=== PATIENT | male | born 1985 | race Caucasian/White ===

== ENCOUNTER 2018-10-22 09:08 | Emergency (ER) | payer BC ==
[2018-10-22 09:43] VITALS: BP 107/71
--- NOTE | 2018-10-22 10:04 | UC ---
Throat Pain/Nasal [place] HPI - HPI Summary HPI Summary: 32-year-old male comes to clinic today with a chief complaint of cough and sputum production. Patient's had upper respiratory tract infection symptoms for about 10 days now. His sputum is yellow. He has heard some wheezing. He is not a smoker. Coughing helps get rid of the sputum. - History of Current Complaint Chief Complaint: UCRespiratory Stated Complaint: COUGH,CHEST CONGESTION Time Seen by Provider: 10/22/18 09:52 Pain Intensity: 0 - Allergies/Home Medications Allergies/Adverse Reactions: Allergies Allergy/AdvReac Type Severity Reaction Status Date / Time No Known Allergies Allergy Verified 10/22/18 09:38 Home Medications: Home Medications Acetaminophen/Dextromethorphan [Cold & Cough Daytime 1000-30 mg/30Ml] 1 liq PO Q12HR PRN 10/22/18 [History Confirmed 10/22/18] PMH/Surg Hx/FS Hx/Imm Hx Previously Healthy: Yes - Surgical History Surgical History: None - Family History Known Family History: Negative: Diabetes - Social History Alcohol Use: Occasionally Substance Use Type: None Smoking Status (MU): Never Smoked Tobacco Review of Systems All Other Systems Reviewed And Are Negative: Yes Constitutional: Positive: Negative Skin: Positive: Negative Eyes: Positive: Negative ENT: Positive: Nasal Discharge, Sinus Congestion Respiratory: Positive: Cough, Other - WHEEZES Cardiovascular: Positive: Negative Gastrointestinal: Positive: Negative Motor: Positive: Negative Neurovascular: Positive: Negative Musculoskeletal: Positive: Negative Neurological: Positive: Negative Psychological: Positive: Negative Is Patient Immunocompromised?: No Physical Exam Triage Information Reviewed: Yes Appearance: No Pain Distress, Well-Nourished, Ill-Appearing - MILD Vital Signs: Initial Vital Signs Temp 97.6 F 10/22/18 09:39 Pulse 80 10/22/18 09:39 Resp 18 10/22/18 09:39 BP 107/71 10/22/18 09:39 Pulse Ox 100 10/22/18 09:39 Vital Signs Reviewed: Yes Eye Exam: Normal Eyes: Positive: Conjunctiva Clear ENT: Positive: Pharyngeal erythema, Nasal congestion, TMs normal Neck exam: Normal Neck: Positive: Supple, Nontender Respiratory: Positive: Lungs clear, Normal breath sounds, No respiratory distress Cardiovascular: Positive: RRR Musculoskeletal Exam: Normal Musculoskeletal: Positive: Strength Intact, ROM Intact Neurological Exam: Normal Neurological: Positive: Alert, Muscle Tone Normal Psychological Exam: Normal Psychological: Positive: Age Appropriate Behavior Skin Exam: Normal Throat Pain/Nasal Course/Dx - Differential Dx/Diagnosis Provider Diagnoses: BRONCHITIS WITH BRONCHOSPASM Discharge - Sign-Out/Discharge Documenting (check all that apply): Patient Departure All imaging exams completed and their final reports reviewed: No Studies - Discharge Plan Condition: Stable Disposition: HOME Prescriptions: Albuterol HFA INHALER* [Ventolin HFA Inhaler*] 2 puff INH Q4H PRN #1 mdi PRN Reason: Wheezing Azithromyxin MARISOL (NF) [Z-Marisol (Zithromax) 250 mg tabs #6] 2 tab PO .TODAY, THEN 1 DAILY #6 tab Patient Education Materials: Acute Bronchitis (ED), Bronchospasm (ED) Referrals: Vitor Peña PA [Primary Care Provider] - Additional Instructions: FOLLOW UP WITH YOUR DOCTOR IF NOT COMPLETELY IMPROVED. GET RECHECKED FOR ANY WORSENING OF YOUR CONDITION OR QUESTIONS OR CONCERNS. - Billing Disposition and Condition Condition: STABLE Disposition: Home
== END 2018-10-22 10:34 | disposition home or self-care (01) ==
LOC: UCCORT 09:08
DX: J40 Bronchitis, not specified as acute or chronic (principal); J98.01 Acute bronchospasm
CPT/HCPCS: 99202; G0463